=== PATIENT | male | born 1980 | race Caucasian/White ===

== ENCOUNTER 2017-09-20 20:23 | Inpatient (IN) | payer MEDICARE, OTHER ==
[2017-09-20 20:50] LABS: Glucose,Whole Blood 130 mg/dL (75-99)
[2017-09-20] MEDS ORDERED: SODIUM CHLORIDE 0.9% 1,000 ML IV STA (21:10)
--- NOTE | 2017-09-20 21:30 | ED ---
General Adult HPI - General Chief complaint: Syncope Stated complaint: Hypotension Source: patient Mode of arrival: EMS Limitations: language barrier, physical limitation - History of Present Illness Initial comments: Dictation was produced using [employer] dictation software. please excuse any grammatical, word or spelling errors. Chief Complaint: 37-year-old male with past medical history of cerebral palsy, seizures presents after syncopal episode. History of Present Illness: Patient is a 37-year-old male who was in the area for camp for adults with mental disabilities. Patient was with staff member when he became immediately unresponsive. They report that he became flaccid. He was awake and alert however was not speaking. Patient has a history of seizures. Patient unable to provide a prescription this time due to mental status. Staff members state that patient is usually able to have some what meaningful conversations. He has been complaining of bilateral leg pain and shortness of breath recently. - Related Data Home Medications Medication Instructions Recorded Confirmed Ascorbic Acid [Vitamin C] 500 mg PO HS@189909/20/17 09/20/17 Aspirin EC [Ecotrin Low Dose] 81 mg PO HS@189909/20/17 09/20/17 Atenolol 100 mg PO DAILY@72909/20/17 09/20/17 Bisacodyl 10 mg RECTAL HS@189909/20/17 09/20/17 Calcium/Mag/Zinc Liquimints 15 ml PO BID@0730,1500 09/20/17 09/20/17 Diazepam [Valium] 2 mg PO TID@0730,1500,189909/20/17 09/20/17 Docusate [Colace] 100 mg PO HS@189909/20/17 09/20/17 Fiber Powder 10 ml PO HS@189909/20/17 09/20/17 Loratadine-Pseudoeph 10-240 mg 1 tab PO DAILY@72909/20/17 09/20/17 [Claritin-D 24 Hr] Multivit-Min/FA/Lycopen/Lutein 1 tab PO DAILY@72909/20/17 09/20/17 [Centrum Silver Tablet] Nystatin [Nystop] 1 applic TOPICAL DAILY@72909/20/17 09/20/17 Omeprazole 20 mg PO HS@189909/20/17 09/20/17 Polyethylene Glycol 3350 [Miralax] 17 gm PO HS@1900 09/20/17 09/20/17 Vitamin E (Dl,Tocopheryl Acet) 400 unit PO DAILY@0730 09/20/17 09/20/17 [Vitamin E] Allergies Allergy/AdvReac Type Severity Reaction Status Date / Time No Known Allergies Allergy Unverified 09/20/17 21:25 Review of Systems ROS Statement: Those systems with pertinent positive or pertinent negative responses have been documented in the HPI. ROS Other: All systems not noted in ROS Statement are negative. Past Medical History Past Medical History: Seizure Disorder Additional Past Medical History / Comment(s): cerebral palsy, seizure disorder, History of Any Multi-Drug Resistant Organisms: None Reported Past Psychological History: No Psychological Hx Reported Smoking Status: Never smoker Past Alcohol Use History: None Reported Past Drug Use History: None Reported General Exam - General Exam Comments Initial Comments: PHYSICAL EXAM: General Impression: No acute distress, exotropia HEENT: Normocephalic atraumatic, extra-ocular movements intact, pupils equal and reactive to light bilaterally, dry mucous membranes Cardiovascular: Tachycardic Chest: Lungs clear to auscultation bilaterally, no rhonchi, no wheeze, no rales Abdomen: Bowel sounds present, abdomen soft, non-tender, non-distended, no organomegaly Musculoskeletal: Pulses present and equal in all extremities, no peripheral edema, contractures of all extremities Motor: Moves all extremities Neurological: CN II-XII grossly intact Skin: Intact with no visualized rashes Limitations: language barrier, physical limitation Course Vital Signs 09/20/17 09/20/17 21:04 22:50 Temperature 97.1 F L Pulse Rate 116 H 114 H Respiratory 15 16 Rate Blood Pressure 153/78 161/93 O2 Sat by Pulse 99 98 Oximetry Medical Decision Making - Medical Decision Making ED course: Patient is a 37-year-old male with multiple comorbidities, mental disability presents after episode of unresponsiveness. Patient is a history of seizures. Staff who presents with the patient states that he had a couple episodes where he fell out of his wheelchair. Staff who is family with patient state that patient is altered today. He is less responsive than usual. Vital signs upon arrival shows tachycardia 116.Laboratory evaluation obtained. Leukocytosis of 18.2. Rest of CBC is unremarkable. D-dimer is negative. Basic metabolic panel shows glucose of 123. Rest of CMP is unremarkable. Urinalysis shows findings to suggest urinary tract infection. EKG was obtained showing sinus tachycardia. There is a nonspecific T-wave inversion in lead 3. No other findings on EKG to suggest right heart strain. Brain CT was obtained showing maxillary sinusitis, mild ventriculomegaly. No findings to suggest obstructive hydrocephalus. Patient was observed in emergency department for several hours with return of mentation to baseline. Patient still however persistently tachycardic. He is given more intravenous fluids. Tachycardia is likely secondary to dehydration. Patient will benefit from admission to observation for fluid hydration and medical monitoring. Patient was given ceftriaxone for urinary tract infection. Discussed patient case with hospitalist is willing to accept the admission. EKG interpretation: Ventricular rate 106. Sinus tachycardia rhythm. No OK prolongation, no QTC prolongation, no ST or T-wave changes noted. Nonspecific EKG changes in lead 3. Overall, this EKG is unremarkable - Lab Data Result diagrams: 09/20/17 21:23 09/20/17 21:23 Lab Results 09/20/17 09/20/17 09/20/17 Range/Units 20:48 20:48 21:23 WBC 18.2 H (3.8-10.6) k/uL RBC 5.73 (4.30-5.90) m/uL Hgb 16.2 (13.0-17.5) gm/dL Hct 47.7 (39.0-53.0) % MCV 83.3 (80.0-100.0) fL MCH 28.3 (25.0-35.0) pg MCHC 34.0 (31.0-37.0) g/dL RDW 13.2 (11.5-15.5) % Plt Count 278 (150-450) k/uL Neutrophils % 89 % Lymphocytes % 5 % Monocytes % 3 % Eosinophils % 2 % Basophils % 0 % Neutrophils # 16.2 H (1.3-7.7) k/uL Lymphocytes # 0.9 L (1.0-4.8) k/uL Monocytes # 0.6 (0-1.0) k/uL Eosinophils # 0.4 (0-0.7) k/uL Basophils # 0.0 (0-0.2) k/uL D-Dimer (<0.60) mg/L FEU Sodium (137-145) mmol/L Potassium (3.5-5.1) mmol/L Chloride (98-107) mmol/L Carbon Dioxide (22-30) mmol/L Anion Gap mmol/L BUN (9-20) mg/dL Creatinine (0.66-1.25) mg/dL Est GFR (CKD-EPI)AfAm (>60 ml/min/1.73 sqM) Est GFR (CKD-EPI)NonAf (>60 ml/min/1.73 sqM) Glucose (74-99) mg/dL POC Glucose (mg/dL) 130 H (75-99) mg/dL POC Glu Roller Inspector ID [address] Calcium (8.4-10.2) mg/dL Total Bilirubin (0.2-1.3) mg/dL AST (17-59) U/L ALT (21-72) U/L Alkaline Phosphatase (38-126) U/L Total Protein (6.3-8.2) g/dL Albumin (3.5-5.0) g/dL Urine Color Yellow Urine Appearance Turbid (Clear) Urine pH 7.5 (5.0-8.0) Ur Specific Logan 1.017 (1.001-1.035) Urine Protein Trace H (Negative) Urine Glucose (UA) Negative (Negative) Urine Ketones Trace H (Negative) Urine Blood Negative (Negative) Urine Nitrite Positive (Negative) Urine Bilirubin Negative (Negative) Urine Urobilinogen <2.0 (<2.0) mg/dL Ur Leukocyte Esterase Trace H (Negative) Ur Squamous Epith Cells <1 (0-4) /hpf Amorphous Sediment Rare H (None) /hpf Urine Bacteria Many H (None) /hpf 09/20/17 09/20/17 Range/Units 21:23 21:23 WBC (3.8-10.6) k/uL RBC (4.30-5.90) m/uL Hgb (13.0-17.5) gm/dL Hct (39.0-53.0) % MCV (80.0-100.0) fL MCH (25.0-35.0) pg MCHC (31.0-37.0) g/dL RDW (11.5-15.5) % Plt Count (150-450) k/uL Neutrophils % % Lymphocytes % % Monocytes % % Eosinophils % % Basophils % % Neutrophils # (1.3-7.7) k/uL Lymphocytes # (1.0-4.8) k/uL Monocytes # (0-1.0) k/uL Eosinophils # (0-0.7) k/uL Basophils # (0-0.2) k/uL D-Dimer 0.30 (<0.60) mg/L FEU Sodium 141 (137-145) mmol/L Potassium 4.0 (3.5-5.1) mmol/L Chloride 103 (98-107) mmol/L Carbon Dioxide 23 (22-30) mmol/L Anion Gap 15 mmol/L BUN 15 (9-20) mg/dL Creatinine 0.70 (0.66-1.25) mg/dL Est GFR (CKD-EPI)AfAm >90 (>60 ml/min/1.73 sqM) Est GFR (CKD-EPI)NonAf >90 (>60 ml/min/1.73 sqM) Glucose 123 H (74-99) mg/dL POC Glucose (mg/dL) (75-99) mg/dL POC Glu Roller Inspector ID Calcium 9.8 (8.4-10.2) mg/dL Total Bilirubin 0.5 (0.2-1.3) mg/dL AST 23 (17-59) U/L ALT 27 (21-72) U/L Alkaline Phosphatase 85 (38-126) U/L Total Protein 7.2 (6.3-8.2) g/dL Albumin 4.7 (3.5-5.0) g/dL Urine Color Urine Appearance (Clear) Urine pH (5.0-8.0) Ur Specific Logan (1.001-1.035) Urine Protein (Negative) Urine Glucose (UA) (Negative) Urine Ketones (Negative) Urine Blood (Negative) Urine Nitrite (Negative) Urine Bilirubin (Negative) Urine Urobilinogen (<2.0) mg/dL Ur Leukocyte Esterase (Negative) Ur Squamous Epith Cells (0-4) /hpf Amorphous Sediment (None) /hpf Urine Bacteria (None) /hpf Disposition Clinical Impression: UTI (urinary tract infection), Dehydration Disposition: ADMITTED IP TO THIS [facility] Referrals: Aaron Ellis MD [Primary Care Provider] - 1-2 days Time of Disposition: 23:10
[2017-09-20 21:39] LABS: Basophils % (A) 0 %; Eosinophils # (A) 0.4 k/uL (0-0.7); Eosinophils % (A) 2 %; HCT 47.7 % (39.0-53.0); HGB 16.2 gm/dL (13.0-17.5); Lymphocytes # (A) 0.9 k/uL (1.0-4.8); Lymphocytes % (A) 5 %; MCH 28.3 pg (25.0-35.0); MCV 83.3 fL (80.0-100.0); Monocytes # (A) 0.6 k/uL (0-1.0); Monocytes % (A) 3 %; Neutrophils # (A) 16.2 k/uL (1.3-7.7); Neutrophils % (A) 89 %; Platelet Count 278 k/uL (150-450); RBC 5.73 m/uL (4.30-5.90); RDW 13.2 % (11.5-15.5); WBC 18.2 k/uL (3.8-10.6)
[2017-09-20 21:49] LABS: ALT 27 U/L (21-72); AST 23 U/L (17-59); Albumin 4.7 g/dL (3.5-5.0); Alkaline Phosphatase 85 U/L (38-126); Anion Gap 15 mmol/L; Blood Urea Nitrogen 15 mg/dL (9-20); Calcium 9.8 mg/dL (8.4-10.2); Carbon Dioxide 23 mmol/L (22-30); Chloride 103 mmol/L (98-107); Glucose 123 mg/dL (74-99); Sodium 141 mmol/L (137-145); Total Bilirubin 0.5 mg/dL (0.2-1.3); Total Protein 7.2 g/dL (6.3-8.2)
--- NOTE | 2017-09-20 22:48 | CT ---
EXAMINATION TYPE: CT brain wo con DATE OF EXAM: 09/20/2017 COMPARISON: HISTORY: trauma yesterday with possible seizure. near syncopal episode today CT DLP: 1153 mGycm. Automated Exposure Control for Dose Reduction was Utilized. TECHNIQUE: CT scan of the head is performed without contrast. FINDINGS: There is some enlargement of the lateral ventricles. There is no mass effect nor midline s hift. There is no sign of intracranial hemorrhage. There is fluid levels in the maxillary sinuses. Th e calvarium is intact. There is mucosal thickening in the ethmoid air cells. IMPRESSION: Mild ventriculomegaly. No evidence of obstructive type hydrocephalus. Maxillary sinusitis.
[2017-09-20 22:57] LABS: Amorphous Sediment,Urine Rare /hpf; Appearance,Urine Turbid (Clear); Bacteria,Urine Many /hpf; Bilirubin,Urine Negative (Negative); Blood,Urine Negative (Negative); Color,Urine Yellow; Glucose,Urine (UA) Negative (Negative); Ketones,Urine Trace (Negative); Leukocyte Esterase,Urine Trace (Negative); Nitrite,Urine Positive (Negative); PH, Urine 7.5 (5.0-8.0); Protein,Urine Trace (Negative); Specific Gravity,Urine 1.017 (1.001-1.035); Squamous Epithelial Cell,Urine <1 /hpf (0-4); Urobilinogen,Urine <2.0 mg/dL (<2.0)
[2017-09-20] MEDS ORDERED: cefTRIAXone IN SWFI 1,000 MG/10 ML SYRINGE IVP STA (23:01)
[2017-09-20] MEDS ORDERED: NALOXONE 0.4 MG/ML 1 ML VIAL IV PRN (23:11)
[2017-09-21] MEDS ORDERED: ATENOLOL 50 MG TAB PO STA (00:01)
--- NOTE | 2017-09-21 05:50 | P.HPIM ---
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 Hypertension. normally he can drive his electric chair, and he is a good talker but not intelligent, is quadriplegic and spends his time sitting in his chair . He was a at camp with friends with his special needs group. Where he suddenly spaced out during dinner, and was clammy , and called ems and brought in here . Patient fell off his bed 2 days ago at the And hit his forehead no loss of consciousness was reported small abrasion 1 x 1 cm over his left forehead he gets frequent UTI, he uses condom cath , and he complains of chronic constipation history was taken from the mother is accompanying the patient. Patient was made full code by default this has not very been discussed with her . Review of Systems Unable to obtain review of systems due to patient mental disability Past Medical History Past Medical History: GERD/Reflux, Hypertension Additional Past Medical History / Comment(s): cerebral palsy, pt mother states there is no seizure disorder, History of Any Multi-Drug Resistant Organisms: None Reported Past Surgical History: Orthopedic Surgery Additional Past Surgical History / Comment(s): surgery bilateral thighs to relieve muscle spasm do to cerebral palsy, tubes in ears, testical removal Past Anesthesia/Blood Transfusion Reactions: No Reported Reaction Additional Past Anesthesia/Blood Transfusion Reaction / Comment(s): patient recv. blood as a neonat. Mother states he does have a shell fish allergy Past Psychological History: No Psychological Hx Reported Smoking Status: Never smoker Past Alcohol Use History: None Reported Past Drug Use History: None Reported - Past Family History family Additional Family Medical History / Comment(s): patient number is completely healthy Medications and Allergies Home Medications Medication Instructions Recorded Confirmed Type Ascorbic Acid [Vitamin C] 500 mg PO HS@0 09/20/17 09/20/17 History Aspirin EC [Ecotrin Low Dose] 81 mg PO HS@0 09/20/17 09/20/17 History Atenolol 100 mg PO DAILY@0730 09/20/17 09/20/17 History Bisacodyl 10 mg RECTAL HS@189909/20/17 09/20/17 History Calcium/Mag/Zinc Liquimints 15 ml PO BID@30,1500 09/20/17 09/20/17 History Diazepam [Valium] 2 mg PO TID@0730,1500,1900 09/20/17 09/20/17 History Docusate [Colace] 100 mg PO HS@189909/20/17 09/20/17 History Fiber Powder 10 ml PO HS@189909/20/17 09/20/17 History Loratadine-Pseudoeph 10-240 mg 1 tab PO DAILY@72909/20/17 09/20/17 History [Claritin-D 24 Hr] Multivit-Min/FA/Lycopen/Lutein 1 tab PO DAILY@72909/20/17 09/20/17 History [Centrum Silver Tablet] Nystatin [Nystop] 1 applic TOPICAL DAILY@72909/20/17 09/20/17 History Omeprazole 20 mg PO HS@189909/20/17 09/20/17 History Polyethylene Glycol 3350 [Miralax] 17 gm PO HS@189909/20/17 09/20/17 History Vitamin E (Dl,Tocopheryl Acet) 400 unit PO DAILY@72909/20/17 09/20/17 History [Vitamin E] Allergies Allergy/AdvReac Type Severity Reaction Status Date / Time No Known Allergies Allergy Unverified 09/20/17 21:25 Physical Exam Vitals: Vital Signs Temp Pulse Pulse Resp BP BP Pulse Ox 09/21/17 00:59 100.3 F H 102 H 17 136/84 100 09/20/17 23:56 110 H 15 150/92 100 09/20/17 23:00 115 H 18 163/91 100 09/20/17 22:50 114 H 16 161/93 98 09/20/17 21:04 97.1 F L 116 H 15 153/78 99 Intake and Output 09/20/17 09/20/17 09/21/17 14:59 22:59 06:59 Other: Weight 63.503 kg Constitutional: No acute distress, patient is not talkative at this time he only taxes mother with few words Eyes: Anicteric sclerae, moist conjunctiva Pupils equal round reactive to light ENMT: NC , there is small abrasion over the left forehead Oropharynx clear, no erythema, exudates Neck: Supple, FROM, no masses, or JVD No carotid bruits No thyromegaly Lungs: Clear to auscultation Clear to percussion Normal respiratory effort, no accessory muscle use Cardiovascular: Heart regular in rate and rhythm, No murmurs, gallops, or rubs No peripheral edema Abdominal: Soft Nontender, no guarding, rebound or rigidity Abdomen moving with respiration Normoactive bowel sounds No hepatomegaly, No splenomegaly No palpable mass No abdominal wall hernia noted Skin: Normal temperature, tone, texture, turgor No induration No subcutaneous nodules No rash, lesions No ulcers No pressure ulcers at this time Extremities: No digital cyanosis No clubbing Pedal pulses intact and symmetrical Radial pulses intact and symmetrical No calf tenderness Psychiatric: Patient is alert and only talks to his mom has mental disability since Neuro patient is cardioplegic , patient did not cooperate with neurologic exam, contractures in all 4 extremities Lymphatics: no palpable cervical or supraclavicular , or inguinal lymph nodes Results CBC & Chem 7: 09/20/17 21:23 09/20/17 21:23 Labs: Abnormal Lab Results - Last 24 Hours (Table) 09/20/17 09/20/17 09/20/17 Range/Units 20:48 20:48 21:23 WBC 18.2 H (3.8-10.6) k/uL Neutrophils # 16.2 H (1.3-7.7) k/uL Lymphocytes # 0.9 L (1.0-4.8) k/uL Glucose (74-99) mg/dL POC Glucose (mg/dL) 130 H (75-99) mg/dL Urine Protein Trace H (Negative) Urine Ketones Trace H (Negative) Ur Leukocyte Esterase Trace H (Negative) Amorphous Sediment Rare H (None) /hpf Urine Bacteria Many H (None) /hpf 09/20/17 Range/Units 21:23 WBC (3.8-10.6) k/uL Neutrophils # (1.3-7.7) k/uL Lymphocytes # (1.0-4.8) k/uL Glucose 123 H (74-99) mg/dL POC Glucose (mg/dL) (75-99) mg/dL Urine Protein (Negative) Urine Ketones (Negative) Ur Leukocyte Esterase (Negative) Amorphous Sediment (None) /hpf Urine Bacteria (None) /hpf Thrombosis Risk Factor Assmnt - Choose All That Apply Any of the Below Risk Factors Present?: Yes Each Factor Represents 1 point: Medical pt on bed rest Thrombosis Risk Factor Assessment Total Risk Factor Score: 1 Thrombosis Risk Factor Assessment Level: Low Risk Assessment and Plan Assessment: 37-year-old male with history of mental disability since admitted to the hospital as an inpatient with inspected length of stay of more than 2 days for sepsis secondary to UTI Plan: Sepsis secondary to UTI Urinary tract infection Rocephin IV fluid hydration Follow-up cultures Supportive care Chronic constipation Continue with bowel regimen Hypertension continue with atenolol Sinus tachycardia most likely reactive secondary to sepsis and UTI DVT prophylaxis heparin subcu 3 times a day Patient is cardioplegic Diet regular with one-on-one supervision Surrogate decision-maker: Patient mother CODE STATUS: Full code by default Discussed with: Patient, ER, *RN Anticipated discharge: 48-[address]: [facility] A total of 50 minutes was spent on the care of this complex patient more than 50 % of the time was spent in counseling and care coordination.
[2017-09-21] MEDS ORDERED: LORATADINE-PSEUDOEPH 5-120 MG 1 EACH TAB.ER.12H PO SCH (07:30)
[2017-09-21] MEDS: SODIUM CHLORIDE 0.9% 1,000 ML IV SCH ×2 (07:50→15:57)
[2017-09-21] MEDS: ATENOLOL 50 MG TAB PO SCH (08:00)
[2017-09-21] MEDS: HEPARIN SODIUM,PORCINE 5,000 UNIT/ML 1 ML VIAL SQ SCH ×2 (08:00→15:53)
[2017-09-21] MEDS: DIAZEPAM 2 MG TAB PO SCH ×3 (08:00→20:10)
[2017-09-21 08:23] VITALS: RESP 16
[2017-09-21] MEDS: NYSTATIN 100,000 UNIT/GM POWD 15 GM TOPICAL SCH (08:43)
[2017-09-21] MEDS: LORATADINE-PSEUDOEPH 5-120 MG 1 EACH TAB.ER.12H PO SCH ×2 (08:43→20:49)
[2017-09-21] MEDS: cefTRIAXone IN SWFI 1,000 MG/10 ML SYRINGE IVP SCH (08:43)
[2017-09-21] MEDS: VITAMIN E (DL,TOCOPHERYL ACET) 400 UNIT CAP PO SCH (08:44)
[2017-09-21] MEDS: BACITRACIN 500 UNIT/GM OINT 28.4 GM TUBE TOPICAL SCH ×2 (11:49→20:11)
[2017-09-21 12:29] LABS: Anion Gap 11 mmol/L; Blood Urea Nitrogen 9 mg/dL (9-20); Calcium 9.3 mg/dL (8.4-10.2); Carbon Dioxide 22 mmol/L (22-30); Chloride 108 mmol/L (98-107); Glucose 88 mg/dL (74-99); Phosphorus 2.9 mg/dL (2.5-4.5); Sodium 141 mmol/L (137-145)
[2017-09-21 12:41] LABS: Basophils # (A) 0.1 k/uL (0-0.2); Basophils % (A) 0 %; Eosinophils # (A) 0.3 k/uL (0-0.7); Eosinophils % (A) 2 %; HCT 43.7 % (39.0-53.0); HGB 14.7 gm/dL (13.0-17.5); Lymphocytes # (A) 1.3 k/uL (1.0-4.8); Lymphocytes % (A) 9 %; MCH 28.5 pg (25.0-35.0); MCHC 33.7 g/dL (31.0-37.0); MCV 84.7 fL (80.0-100.0); Mean Platelet Volume 7.7; Monocytes # (A) 0.9 k/uL (0-1.0); Monocytes % (A) 6 %; Neutrophils # (A) 11.9 k/uL (1.3-7.7); Neutrophils % (A) 82 %; Platelet Count 238 k/uL (150-450); RBC 5.16 m/uL (4.30-5.90); RDW 13.1 % (11.5-15.5); WBC 14.5 k/uL (3.8-10.6)
[2017-09-21] MEDS ORDERED: FIBER PO SCH (19:00)
[2017-09-21] MEDS ORDERED: ASPIRIN 81 MG PO SCH (19:00)
[2017-09-21] MEDS ORDERED: DOCUSATE 100 MG CAP PO SCH (19:00)
[2017-09-21] MEDS ORDERED: ASCORBIC ACID 500 MG TAB PO SCH (19:00)
[2017-09-21] MEDS ORDERED: PANTOPRAZOLE 40 MG TABLET PO SCH (19:00)
[2017-09-21] MEDS ORDERED: POLYETHYLENE GLYCOL 3350 17 GM POWD.PACK PO SCH (19:00)
[2017-09-21] MEDS ORDERED: BISACODYL 10 MG SUPP RECTAL SCH (19:00)
[2017-09-22] MEDS: HEPARIN SODIUM,PORCINE 5,000 UNIT/ML 1 ML VIAL SQ SCH ×2 (00:15→08:34)
[2017-09-22] MEDS: SODIUM CHLORIDE 0.9% 1,000 ML IV SCH ×2 (04:20→13:30)
[2017-09-22 06:26] VITALS: BP 127/62; PULSE 102; TEMP 98.6
[2017-09-22] MEDS: LORATADINE-PSEUDOEPH 5-120 MG 1 EACH TAB.ER.12H PO SCH (08:33)
[2017-09-22] MEDS: VITAMIN E (DL,TOCOPHERYL ACET) 400 UNIT CAP PO SCH (08:33)
[2017-09-22] MEDS: DIAZEPAM 2 MG TAB PO SCH (08:33)
[2017-09-22] MEDS: ATENOLOL 50 MG TAB PO SCH (08:34)
[2017-09-22] MEDS: cefTRIAXone IN SWFI 1,000 MG/10 ML SYRINGE IVP SCH (09:02)
[2017-09-22] MEDS: NYSTATIN 100,000 UNIT/GM POWD 15 GM TOPICAL SCH (09:02)
[2017-09-22] MEDS: BACITRACIN 500 UNIT/GM OINT 28.4 GM TUBE TOPICAL SCH (09:09)
[2017-09-22 11:53] LABS: Basophils % (A) 0 %; Eosinophils # (A) 0.4 k/uL (0-0.7); Eosinophils % (A) 5 %; HCT 44.8 % (39.0-53.0); Lymphocytes # (A) 1.5 k/uL (1.0-4.8); Lymphocytes % (A) 19 %; MCH 28.1 pg (25.0-35.0); MCHC 33.5 g/dL (31.0-37.0); Mean Platelet Volume 7.4; Monocytes # (A) 0.6 k/uL (0-1.0); Monocytes % (A) 7 %; Neutrophils # (A) 5.3 k/uL (1.3-7.7); Neutrophils % (A) 67 %; Platelet Count 256 k/uL (150-450); RBC 5.34 m/uL (4.30-5.90); RDW 13.1 % (11.5-15.5); WBC 7.9 k/uL (3.8-10.6)
[2017-09-22 12:10] LABS: ALT 29 U/L (21-72); AST 17 U/L (17-59); Albumin 4.1 g/dL (3.5-5.0); Alkaline Phosphatase 64 U/L (38-126); Anion Gap 10 mmol/L; Blood Urea Nitrogen 9 mg/dL (9-20); Calcium 9.3 mg/dL (8.4-10.2); Carbon Dioxide 22 mmol/L (22-30); Chloride 109 mmol/L (98-107); Glucose 93 mg/dL (74-99); Potassium 4.1 mmol/L (3.5-5.1); Sodium 141 mmol/L (137-145); Total Bilirubin 0.4 mg/dL (0.2-1.3); Total Protein 6.5 g/dL (6.3-8.2)
--- NOTE | 2017-09-22 12:54 | P.DS ---
Providers Date of admission: 09/20/17 23:11 Expected date of discharge: 09/22/17 Attending physician: Krystal Fuchs MD Primary care physician: [facility] Course: 37 y old male with history of mental disability and quadriplegic who was born premature and had lack of oxygen on presented to hospital because of changes in mental status. He normally he can drive his electric chair, and he is a good talker but not intelligent. Patient was a at camp with his special needs friends/group, when he suddenly spaced out during dinner, was clammy. Of note patient fell off his bed 2 days ago, hit his forehead, no loss of consciousness was reported. After the fall he had a small abrasion 1 x 1 cm over his left forehead. He uses condom cath, gets frequent UTIs. In the ER he was found to have sepsis sec to acute UTI. His heart rate and white count were elevated. He was admitted to the hospital for further treatment. He was treated with IV fluids and IV antibiotics as well. Urine cultures were sent. Over the next couple of days he symptomatically improved and today his father thinks that he is at his baseline. Currently he is eating and communicating as he used to. He will be discharged home in stable condition on oral Bactrim. At the time of the discharge urine cultures weren't back yet. I will follow-up on the cultures tomorrow and adjust antibiotics treatment accordingly. Discharge diagnoses Acute sepsis Acute urinary tract infection Acute septic encephalopathy, resolved Plan - Discharge Summary Discharge Rx Participant: No New Discharge Prescriptions: New Sulfamethox-Tmp 800-160Mg [Bactrim DS 800-160 mg] 1 tab PO Q12HR #20 tab Continue Docusate [Colace] 100 mg PO HS@1900 Bisacodyl 10 mg RECTAL HS@1900 Polyethylene Glycol 3350 [Miralax] 17 gm PO HS@1900 Omeprazole 20 mg PO HS@1900 Aspirin EC [Ecotrin Low Dose] 81 mg PO HS@1900 Ascorbic Acid [Vitamin C] 500 mg PO HS@1900 Fiber Powder 10 ml PO HS@1900 Calcium/Mag/Zinc Liquimints 15 ml PO BID@0730,1500 Loratadine-Pseudoeph 10-240 mg [Claritin-D 24 Hour] 1 tab PO DAILY@0730 Vitamin E (Dl,Tocopheryl Acet) [Vitamin E] 400 unit PO DAILY@729 Nystatin [Nystop] 1 applic TOPICAL DAILY@729 Multivit-Min/FA/Lycopen/Lutein [Centrum Silver Tablet] 1 tab PO DAILY@729 Atenolol 100 mg PO DAILY@729 Diazepam [Valium] 2 mg PO TID@0730,1500,1900 Discharge Medication List Ascorbic Acid [Vitamin C] 500 mg PO HS@189909/20/17 [History] Aspirin EC [Ecotrin Low Dose] 81 mg PO HS@189909/20/17 [History] Atenolol 100 mg PO DAILY@72909/20/17 [History] Bisacodyl 10 mg RECTAL HS@189909/20/17 [History] Calcium/Mag/Zinc Liquimints 15 ml PO BID@0730,1500 09/20/17 [History] Diazepam [Valium] 2 mg PO TID@0730,1500,189909/20/17 [History] Docusate [Colace] 100 mg PO HS@189909/20/17 [History] Fiber Powder 10 ml PO HS@189909/20/17 [History] Loratadine-Pseudoeph 10-240 mg [Claritin-D 24 Hour] 1 tab PO DAILY@729 [History] Multivit-Min/FA/Lycopen/Lutein [Centrum Silver Tablet] 1 tab PO DAILY@09/20 [History] Nystatin [Nystop] 1 applic TOPICAL DAILY@72909/20/17 [History] Omeprazole 20 mg PO HS@189909/20/17 [History] Polyethylene Glycol 3350 [Miralax] 17 gm PO HS@189909/20/17 [History] Vitamin E (Dl,Tocopheryl Acet) [Vitamin E] 400 unit PO DAILY@72909/20/17 [ History] Sulfamethox-Tmp 800-160Mg [Bactrim DS 800-160 mg] 1 tab PO Q12HR #20 tab [Rx] Follow up Appointment(s)/Referral(s): Aaron Ellis MD [Primary Care Provider] - 1-2 days Activity/Diet/Wound Care/Special Instructions: need note stating fabian is able to return to work shop
== END 2017-09-22 14:27 | disposition home or self-care (01) | DRG 871 ==
LOC: EC 20:23 → 4MS4W 23:11
PROVIDERS: ADMIT Internal Medicine; ATTEND Internal Medicine
DX: A41.9 Sepsis, unspecified organism (principal); G93.41 Metabolic encephalopathy; G82.50 Quadriplegia, unspecified; N39.0 Urinary tract infection, site not specified; G80.9 Cerebral palsy, unspecified; I10 Essential (primary) hypertension; K21.9 Gastro-esophageal reflux disease without esophagitis; K59.09 Other constipation; R65.20 Severe sepsis without septic shock; G40.909 Epilepsy, unspecified, not intractable, without status epilepticus; J32.0 Chronic maxillary sinusitis; E86.0 Dehydration; M62.462 Contracture of muscle, left lower leg; M62.461 Contracture of muscle, right lower leg; M62.422 Contracture of muscle, left upper arm; M62.421 Contracture of muscle, right upper arm; F99 Mental disorder, not otherwise specified; S00.81XA Abrasion of other part of head, initial encounter; Z79.899 Other long term (current) drug therapy; Z79.82 Long term (current) use of aspirin; Z87.440 Personal history of urinary (tract) infections; Z90.79 Acquired absence of other genital organ(s); W06.XXXA Fall from bed, initial encounter; Y92.9 Unspecified place or not applicable
CPT/HCPCS: 36415; 70450; 80048; 80053; 81001; 83735; 84100; 85025; 85379; 87077; 87086; 87186; 93005; 94760; 96361; 96374; 99285